=== PATIENT | female | born 1960 | race Caucasian/White ===

== ENCOUNTER → 2016-06-06 | Outpatient (CLI) | payer OTHER | END | disposition home or self-care (01) | LOC: CDC 10:55 | DX: N92.6 Irregular menstruation, unspecified (principal) | CPT/HCPCS: 93000 ==

== ENCOUNTER 2016-06-16 05:22 | Day surgery (SDC) | payer OTHER ==
[~2016-06-16] VITALS: Ht 160 cm; Wt 102.9 kg
[2016-06-16 06:02] VITALS: BP 142/79
[2016-06-16 06:16] VITALS: BP 142/79
[2016-06-16 09:11] VITALS: BP 141/78
[2016-06-16 09:50] VITALS: BP 153/78
== END 2016-06-16 10:15 | disposition home or self-care (01) ==
LOC: SDC 05:22
DX: N92.1 Excessive and frequent menstruation with irregular cycle (principal); Z30.430 Encounter for insertion of intrauterine contraceptive device; E66.9 Obesity, unspecified; Z68.41 Body mass index [BMI] 40.0-44.9, adult; I10 Essential (primary) hypertension; R42 Dizziness and giddiness; Z83.3 Family history of diabetes mellitus; Z80.0 Family history of malignant neoplasm of digestive organs
CPT/HCPCS: 88305; J0131; J0690; J1100; J1885; J2250; J2405; J2765; J3010